=== PATIENT | male | born 1995 | race Caucasian/White ===

== ENCOUNTER → 2018-11-14 | Outpatient (CLI) | payer OTHER ==
--- NOTE | 2018-11-14 15:55 | RADIOLOGY IMAGING REPORT ---
FACILITY: [facility] PATIENT NAME: Adonis Guzman : 1995 MR: [id number] V: [id number] EXAM DATE: ORDERING PHYSICIAN: ABI BRANDT TECHNOLOGIST: Location: [facility] - [place], [place] Patient: Adonis Guzman : 1995 Visit/Account:[id number] Date of Sevice: 11/14/2018 MR ABDOMEN W/O CON HISTORY: Left lower rib pain ADDITIONAL HISTORY: None. TECHNIQUE: Multiplanar multisequence magnetic resonance imaging of the abdomen without intravenous c ontrast. CONTRAST: None. COMPARISON: None. FINDINGS: Bones/body wall: No bone marrow edema to indicate fracture. No muscular edema to indicate significant strain. No mass or fluid collection. Liver: Geographic hepatic steatosis. Gallbladder and bile ducts: Negative. The common bile duct measures 3 mm. Spleen: Negative. Adrenal glands: Negative. Pancreas: Negative. Kidneys: Negative. Vessels: Normal Bowel/peritoneum/mesentery: Negative Lymph nodes: Negative Bones/soft tissues: Negative Visualized lung bases: Negative Visualized pelvis: Negative Other findings: None significant IMPRESSION: 1. No evidence of osseous or soft tissue injury. 2. Geographic hepatic steatosis. Report Dictated By: Jaya Clark MD at 11/14/2018 3:42 PM Report E-Signed By: Jaya Clark MD at 11/14/2018 3:50 PM WSN:[id number]
== END ==
LOC: MRI 07:39
PROVIDERS: ATTEND Nurse Practitioner Family
DX: S39.011D Strain of muscle, fascia and tendon of abdomen, subsequent encounter (principal); K76.0 Fatty (change of) liver, not elsewhere classified
CPT/HCPCS: 74181